=== PATIENT | male | born 1975 | race Caucasian/White ===

== ENCOUNTER 2018-06-26 22:05 | Emergency (ER) | payer SELFPAY ==
[~2018-06-26] VITALS: Ht 175.3 cm; Wt 99.8 kg
[2018-06-26 22:14] VITALS: BP 134/81
--- NOTE | 2018-06-26 22:14 | NUR ---
PT C/O RUQ ABD PAIN RADIATING TO RIGHT LOWER BACK WITH N/V/D X1 DAY. PT STATES 8/10 PAIN AT THIS TIME. VSS. A&OX4. POSITIONED IN BED FOR COMFORT. ER MD AWARE. CONTINUE TO MONITOR.
--- NOTE | 2018-06-26 22:14 | NUR ---
DR LINDA AT BEDSIDE EVALUATING PT.
--- NOTE | 2018-06-26 22:14 | NUR ---
TO BED # 3 AMBULATORY, REPORT GIVEN TO KUSUM WANG
[2018-06-26] MEDS ORDERED: NACL 0.9% 500 ML IV ONE (22:31)
[2018-06-26] MEDS ORDERED: ONDANSETRON 4 MG/2 ML VIAL IVP ONE (22:35)
[2018-06-26] MEDS ORDERED: KETOROLAC 30 MG/ML VIAL IVP ONE (22:35)
--- NOTE | 2018-06-26 23:24 | NUR ---
PT IN BED RESTING WITH EYES CLOSED. VSS. POSITIONED IN BED FOR COMFORT. ER MD AWARE. CONTINUE TO MONITOR.
[2018-06-26 23:32] LABS: HEMOGLOBIN 17.9 g/dL (12.0-18.0); MEAN CORPUSCULAR HEMOGLOBIN 31 pg (27-31); MEAN CORPUSCULAR HGB CONC 36 g/dL (33-37); MEAN CORPUSCULAR VOLUME 86.7 fL (80-94); PLATELET COUNT (AUTO) 225 K/uL (140-450); RED CELL DISTRIBUTION WIDTH 13.5 % (11.6-13.7)
[2018-06-26 23:38] LABS: ALBUMIN 4.4 g/dL (3.4-5.0); ANION GAP 15.2 (8-16); CARBON DIOXIDE 27.1 mmol/L (21-32); CREATININE 1.3 mg/dL (0.7-1.3); POTASSIUM 3.3 mmol/L (3.5-5.1); TOTAL BILIRUBIN 0.9 mg/dL (0.0-1.0)
--- NOTE | 2018-06-26 23:38 | NUR ---
Note ingrisone in EDM - 06/27/18 at 0006 by MEDS Patient discharged with v/s stable. Written and verbal after care instructions given and explained. Patient alert, oriented and verbalized understanding of instructions. Ambulatory with steady gait. All questions addressed prior to discharge. ID band removed. Patient advised to follow up with PMD. Rx of BRIAN BLEVINS given. Patient educated on indication of medication including possible reaction and side effects. Opportunity to ask questions provided and answered.
[2018-06-26 23:49] LABS: HEMATOCRIT 53.7 % (36-52); WHITE BLOOD COUNT (AUTO) 16.3 K/uL (4.8-10.8)
[2018-06-26 23:50] LABS: LYMPHOCYTES % (MANUAL) 6 % (20-46); MONOCYTES % (MANUAL) 2 % (5-12)
[2018-06-26] MEDS ORDERED: PANTOPRAZOLE 40 MG INJ VIAL IVP ONE (23:55)
--- NOTE | 2018-06-27 00:07 | NUR ---
IVP MEDS GIVEN-NADR AT THIS TIME
[2018-06-27 00:25] VITALS: BP 128/75
--- NOTE | 2018-06-27 00:26 | NUR ---
Patient discharged with v/s stable. Written and verbal after care instructions given and explained. Patient alert, oriented and verbalized understanding of instructions. Ambulatory with steady gait. All questions addressed prior to discharge. ID band removed. Patient advised to follow up with PMD. Rx of ZORFRAN, OMEPRAZOLE, given. Patient educated on indication of medication including possible reaction and side effects. Opportunity to ask questions provided and answered.
== END 2018-06-27 00:26 | disposition home or self-care (01) ==
LOC: MED 22:05
DX: K29.70 Gastritis, unspecified, without bleeding (principal)
CPT/HCPCS: 36415; 76705; 80053; 83690; 85025; 96361; 96374; 96375; 99285; C9113; J1885; J2405; J7030; Q0092